=== PATIENT | male | born 1970 | race Hispanic/Latino ===

== ENCOUNTER 2018-09-21 13:47 | Observation (INO) | payer OTHER ==
[2018-09-21] MEDS ORDERED: Sodium Chloride 0.9% 1,000 ML IV STA (14:10)
--- NOTE | 2018-09-21 14:22 | ED PDOC ---
HPI: General Adult Time Seen by Provider: 09/21/18 14:01 Chief Complaint (Nursing): Chest Pain Chief Complaint (Provider): Generalized weakness, chest tightness and palpitations History Per: Patient History/Exam Limitations: no limitations Onset/Duration Of Symptoms: Hrs (x1 ) Current Symptoms Are (Timing): Still Present Additional Complaint(s): Juan Franklin is a 47 year old male, with no significant past medical history, who presents to the emergency department for evaluation of generalized weakness and palpitations associated with chest tightness onset x1 hr prior to arrival. Patient states he had a lot of wine last night, he woke up this morning and had a vomiting episode. However, x1 hr ago patient felt his heart was racing associated with chest tightness. He reports feeling like he was about to pass out but didn't. Patient states symptoms resolved but occurred again prompting ED visit. He denies similar symptoms in the past and reports feeling better now but symptoms are still there. He denies any shortness of breath, numbness or tingling, weakness, long distance travel, calf pain, fever, chills, cough, congestion, abdominal pain, headache or dizziness. No further medical complaints. Patient does not take any medications or hormones. PMD: None provided. Past Medical History Reviewed: Historical Data, Nursing Documentation, Vital Signs - Medical History PMH: No Chronic Diseases - Surgical History Surgical History: No Surg Hx - Family History Family History: States: Diabetes - Social History Current smoker - smoking cessation education provided: No Alcohol: Social Drugs: Denies - Immunization History Hx Tetanus Toxoid Vaccination: No Hx Influenza Vaccination: No Hx Pneumococcal Vaccination: No - Allergies Allergies/Adverse Reactions: Allergies Allergy/AdvReac Type Severity Reaction Status Date / Time No Known Allergies Allergy Verified 09/21/18 13:52 Review of Systems ROS Statement: Except As Marked, All Systems Reviewed And Found Negative Constitutional: Positive for: Weakness (generalized). Negative for: Fever, Chills ENT: Negative for: Nose Congestion Cardiovascular: Positive for: Chest Pain (tightness), Palpitations Respiratory: Negative for: Cough, Shortness of Breath Gastrointestinal: Positive for: Vomiting. Negative for: Abdominal Pain Neurological: Negative for: Weakness, Numbness (tingling), Headache, Dizziness Physical Exam - Reviewed Vital Signs Reviewed: Yes - Physical Exam Appears: Positive for: No Acute Distress Head Exam: Positive for: ATRAUMATIC, NORMAL INSPECTION, NORMOCEPHALIC Skin: Positive for: Normal Color, Warm, Dry Eye Exam: Positive for: Normal appearance, EOMI, PERRL Neck: Positive for: Normal, Painless ROM Cardiovascular/Chest: Positive for: Regular Rate, Rhythm. Negative for: Edema, Murmur Respiratory: Positive for: Normal Breath Sounds. Negative for: Respiratory Distress Gastrointestinal/Abdominal: Positive for: Normal Exam, Soft. Negative for: Tenderness, Guarding, Rebound Back: Negative for: L CVA Tenderness, R CVA Tenderness, Vertebral Tenderness Extremity: Positive for: Normal ROM (upper and lower extremities). Negative for: Tenderness, Calf Tenderness, Deformity, Swelling Neurologic/Psych: Positive for: Alert, Oriented. Negative for: Motor/Sensory Deficits - Laboratory Results Result Diagrams: 09/21/18 14:20 09/21/18 14:20 Interpretation Of Abn Labs: no acute - ECG ECG: Positive for: Interpreted By Me, Viewed By Me ECG Rhythm: Positive for: Normal QRS, Normal ST Segment, Sinus Rhythm - Radiology X-Ray: Interpreted by Me, Viewed By Me X-Ray Interpretation: No Acute Disease - Progress ED Course And Treament: 1500: Stable. Pain free. Tolerated po. Dr. Dejesus will admit obs tele. Medical Decision Making Medical Decision Making: Time: 14:01 Initial Impression: Initial Plan: --EKG --Alcohol serum --CMP --Lipase --Troponin I --CBC w/ differential --PTT --PT --Chest portable [RAD] --Aspirin 325 mg tab --Sodium Chloride 1,000 ml IV 1,000 mls/hr --Reevaluation Scribe Attestation: Documented by Wali Cordova, acting as a scribe for Eddie Bhatia MD Provider Scribe Attestation: All medical record entries made by the Scribe were at my direction and personally dictated by me. I have reviewed the chart and agree that the record accurately reflects my personal performance of the history, physical exam, me dical decision making, and the department course for this patient. I have also personally directed, reviewed, and agree with the discharge instructions and disposition. Disposition - Clinical Impression Clinical Impression: Chest pain - Patient ED Disposition Is Patient to be Admitted: Yes Counseled Patient/Family Regarding: Studies Performed, Diagnosis - Disposition Disposition Time: 15:00 Condition: FAIR - Pt Status Changed To: Hospital Disposition Of: Observation - POA Present On Arrival: None
[2018-09-21 14:32] LABS: BASO # 0.1 K/uL (0.0-0.2); BASO % 0.6 % (0.0-2.0); EOS # 0.1 K/uL (0.0-0.7); EOS % 0.7 % (0.0-4.0); HEMOGLOBIN 13.9 g/dL (12.0-18.0); LYMPH % 10.9 % (20.0-40.0); MEAN CELL VOLUME 91.8 fl (80.0-94.0); MEAN CORPUSCULAR HGB CONC 33.8 g/dL (33.0-37.0); MEAN PLATELET VOLUME 8.3 fl (7.2-11.7); MONO # 0.3 K/uL (0.0-0.8); MONO % 3.1 % (0.0-10.0); NEUT % 84.7 % (50.0-75.0); NRBC % 0.1 % (0.0-0.0); RBC 4.49 Mil/uL (4.40-5.90); RED CELL DISTRIBUTION WIDTH 12.9 % (11.5-14.5); WHITE BLOOD COUNT 9.5 K/uL (4.8-10.8)
[2018-09-21 14:38] LABS: PROTHROMBIN TIME 11.4 Seconds (9.8-13.1)
[2018-09-21 14:41] LABS: PARTIAL THROMBOPLASTIN TIME 24.3 Seconds (25.6-37.1)
[2018-09-21 14:48] LABS: ALB/GLOB RATIO 1.6 (1.0-2.1); ALBUMIN 4.9 g/dL (3.5-5.0); ALT/SGPT 30 U/L (21-72); AST/SGOT 25 U/L (17-59); BLOOD UREA NITROGEN 15 mg/dl (9-20); CALCIUM 9.7 mg/dL (8.4-10.2); GFR NON-AFRICAN AMERICAN > 60; LIPASE 102 U/L (23-300)
[2018-09-21 15:49] VITALS: O2SAT 100
--- NOTE | 2018-09-21 16:18 | CP.PCM.HP ---
History of Present Illness - History of Present Illness History of Present Illness: CC: Chest Pain History of Present Illness: A 47 year old male, with no significant past medical history, who presents to the emergency department for evaluation of chest tightness onset x1 hr prior to arrival to the ER associated with palpitations and feeling of passing out. Patient states he had a lot of wine last night, he woke up this morning and had a vomiting episode and generalized weakness He reports feeling like he was abo ut to pass out but didn't. Patient states symptoms resolved but occurred again prompting ED visit. He denies similar symptoms in the past and reports feeling better now but symptoms are still there. He denies any shortness of breath, numbness or tingling, weakness, long distance travel, calf pain, fever, chills, cough, congestion, abdominal pain, headache or dizziness. No further medical complaints. Patient does not take any medications or hormones. Denies any family h/o Early age CAD or sudden in the family. Works out on and off with no BARRIENTOS or chest pain on exertion prior these episodes. Present on Admission - Present on Admission Any Indicators Present on Admission: No Review of Systems - Review of Systems All systems: reviewed and no additional remarkable complaints except Review of Systems: as per HPI Past Patient History - Past Medical History & Family History Past Medical History?: No Past Family History: Reviewed and not pertinent - Past Social History Smoking Status: Never Smoked Alcohol: Social Drugs: Denies - PSYCHIATRIC Hx Substance Use: No Meds Allergies/Adverse Reactions: Allergies Allergy/AdvReac Type Severity Reaction Status Date / Time No Known Allergies Allergy Verified 09/21/18 13:52 Physical Exam - Constitutional Appears: Well, No Acute Distress - Head Exam Head Exam: ATRAUMATIC, NORMAL INSPECTION, NORMOCEPHALIC - Eye Exam Eye Exam: EOMI, Normal appearance, PERRL Pupil Exam: NORMAL ACCOMODATION, PERRL - ENT Exam ENT Exam: Mucous Membranes Moist, Normal Exam - Neck Exam Neck exam: Positive for: Full Rom, Normal Inspection - Respiratory Exam Respiratory Exam: Clear to Auscultation Bilateral, NORMAL BREATHING PATTERN - Cardiovascular Exam Cardiovascular Exam: REGULAR RHYTHM, +S1, +S2 - GI/Abdominal Exam GI & Abdominal Exam: Normal Bowel Sounds, Soft. absent: Tenderness - Extremities Exam Extremities exam: Positive for: full ROM, normal capillary refill, normal inspection - Back Exam Back exam: NORMAL INSPECTION - Neurological Exam Neurological exam: Alert, CN II-XII Intact, Normal Gait, Oriented x3, Reflexes Normal - Psychiatric Exam Psychiatric exam: Normal Affect, Normal Mood - Skin Skin Exam: Dry, Intact, Normal Color, Warm Results - Vital Signs Recent Vital Signs: Last Vital Signs Temp Pulse 70 09/21/18 15:48 Resp 18 09/21/18 15:48 BP 142/60 09/21/18 15:48 Pulse Ox 100 09/21/18 15:48 - Labs Result Diagrams: 09/21/18 14:20 09/21/18 14:20 Labs: Laboratory Results - last 24 hr 09/21/18 09/21/18 09/21/18 14:20 14:20 14:20 WBC 9.5 RBC 4.49 Hgb 13.9 Hct 41.2 MCV 91.8 MCH 31.0 MCHC 33.8 RDW 12.9 Plt Count 223 MPV 8.3 Neut % (Auto) 84.7 H Lymph % (Auto) 10.9 L [place] % (Auto) 3.1 Eos % (Auto) 0.7 Baso % (Auto) 0.6 Neut # (Auto) 8.0 H Lymph # (Auto) 1.0 [place] # (Auto) 0.3 Eos # (Auto) 0.1 Baso # (Auto) 0.1 PT 11.4 INR 1.0 APTT 24.3 L Sodium 142 Potassium 4.6 Chloride 104 Carbon Dioxide 27 Anion Gap 16 BUN 15 Creatinine 0.9 Est GFR ( Amer) > 60 Est GFR (Non-Af Amer) > 60 Random Glucose 120 H Calcium 9.7 Total Bilirubin 0.4 AST 25 ALT 30 Alkaline Phosphatase 52 Troponin I < 0.0120 Total Protein 7.9 Albumin 4.9 Globulin 3.0 Albumin/Globulin Ratio 1.6 Lipase 102 Alcohol, Quantitative < 10 - EKG Data EKG shows normal: Sinus rhythm, QRS complexes, ST-T waves Rate: Normal - Imaging and Cardiology Chest x-ray Status: Report reviewed by me Additional comment: No Acute Cardiopulmonary finding Assessment & Plan (1) Chest pain Assessment and Plan: R/O ACS ASA Nitro S/L PRN Serial Trop and EKG Fasting Lipid Profile TTE Status: Acute (2) Pre-syncope Status: Acute Priority: High (3) Palpitations Status: Acute Priority: High - Assessment and Plan (Free Text) Plan: Tele-monitoring TSH
[2018-09-21 16:41] VITALS: BP 140/70; PULSE 72; RESP 16; TEMP 97.8
--- NOTE | 2018-09-22 09:46 | CARD ---
APPROVED REPORT Date of service: 09/21/2018 EKG Measurement Heart [id number] <Conclusion> Normal sinus rhythm Normal Electrocardiogram
--- NOTE | 2018-09-22 11:56 | RAD ---
Date of service: 09/21/2018 HISTORY: chest pain COMPARISON: No prior. FINDINGS: LUNGS: No active pulmonary disease. PLEURA: No significant pleural effusion identified, no pneumothorax apparent. CARDIOVASCULAR: No aortic atherosclerotic calcification present. Normal cardiac size. No pulmonary vascular congestion. OSSEOUS STRUCTURES: No significant abnormalities. VISUALIZED UPPER ABDOMEN: Normal. OTHER FINDINGS: None. IMPRESSION: No acute cardiopulmonary disease appreciated.
== END 2018-09-21 16:35 | disposition home or self-care (01) ==
LOC: H.ER 13:47 → H.ERHOLD 15:34
PROVIDERS: ADMIT Internal Medicine; ATTEND Internal Medicine
DX: R07.89 Other chest pain (principal); Z83.3 Family history of diabetes mellitus
CPT/HCPCS: 71045; 80053; 80320; 83690; 84484; 85025; 85610; 85730; 93005; 96360; 99283; G0378; J7030